=== PATIENT | male | born 1970 | race Caucasian/White ===

== ENCOUNTER 2017-01-09 16:59 | Emergency (ER) | payer OTHER ==
[~2017-01-09] VITALS: Ht 182.9 cm; Wt 74.5 kg
[2017-01-09 17:03] VITALS: BP 135/92; PULSE 102; RESP 18
[2017-01-09] MEDS ORDERED: Promethazine Inj 25 MG in 0.9% Sodium Chloride 50 ML IV ONE (17:10)
[2017-01-09] MEDS ORDERED: 0.9% Sodium Chloride 1,000 ML IV ONE (17:10)
[2017-01-09] MEDS ORDERED: Ondansetron 2 mg/mL 2 mL Inj IVPUSH PRN (17:10)
[2017-01-09] MEDS: HYDROmorphone 1 mg/mL Inj IVPUSH PRN ×2 (17:32→18:09)
--- NOTE | 2017-01-09 17:49 | ED.REPORT ---
HPI-Abd Pain M 40 and Over Date of Service Jan 09, 2017 ED Provider: Sony Buitrago MD The patient is a 46 year old male s/p nerve stimulator placement for occipital neuralgia who presents to the ED with LLQ abdominal pain onset two weeks ago, worsening yesterday. The patient also reports increased bowel movements. He denies fever, vomiting, or other symptoms. The patient had an abdominal CT scan today which suggested sigmoid colon diverticulitis. He took antibiotics this morning but his pain has since worsened. Nursing Notes Stated Complaint: STOMACH PAIN Chief Complaint: Male Abdominal Pain Nursing Notes Reviewed: Yes Allergies: Coded Allergies: No Known Allergies (Unverified , 11/10/15) Scheduled Metronidazole (Metronidazole) 500 Mg Tablet 500 MG PO TID Scheduled PRN Ondansetron ODT (Zofran ODT) 4 Mg Tablet 4 MG PO Q4H PRN PRN For Nausea oxyCODONE-Acetaminophen 5-325 mg (oxyCODONE-Acetaminophen 5-325 mg) 1 Each Tablet 1-2 TAB PO Q6H PRN PRN For Pain General Time Seen by MD: 17:01 Chief Complaint Abdominal pain Hx Obtained From: Patient Arrived By: Walk-in Sudden in Onset?: No Onset Occurred: More than a week ago... (2 weeks, worsening yesterday) Symptom Duration: Since onset Location: : LLQ Quality: Painful Severity: Current: Moderate Severity: Maximum: Moderate Pertinent Negative: Relieved by nothing Recent Healthcare: Recent doctor visit Past Medical History Past Medical History Hx of migraines w/ nerve stimulator for occipital neuralgia Past Surgical History right shoulder surgery Smoking History Smoker Current Status UNK Social History Alcohol Use: Denies alcohol use Drug Use: Denies drug use Other Social History: , Local resident Ambulatory Status Independent Review of Systems Review of Systems Note: + Increased bowel movements Constitutional: Denies: Fever Respiratory: Denies: Non-productive cough, Shortness of breath GI: Reports: Abdominal pain (LLQ), Denies: Diarrhea, Vomiting Complete sys rev & neg: except as marked. Physical Exam Initial Vital Signs Vital Signs (First) Date Time Temp Pulse Resp B/P Pulse Ox O2 Delivery O2 Flow Rate FiO2 01/09/17 17:03 36.8 102 18 135/92 Room Air 01/09/17 18:59 99 Initial VS: Reviewed Head / Eyes: Atraumatic, Normocephalic ENT: Conjunctiva normal, No scleral icterus Neck: Supple, Full range of motion Skin: Warm, Dry, No cyanosis Neurologic: Alert, Oriented, Nonfocal Psychiatric: Mood/affect normal, Behavior normal, Normal thought content General/Constitutional: Awake, Alert, No acute distress Respiratory / Chest: Breath sounds NL, Breath sounds = bilat, No respiratory distress Cardiovascular: Heart rate NL, Regular rhythm, Heart sounds NL Abdomen: Soft Tenderness/Guarding/Rebound: Positive: Tender LLQ... LLQ guarding Interpretation & Diagnostics CT ABDOMEN AND PELVIS W/ IV AND ORAL CONTRAST from clinic on 01/09/17: IMPRESSION: Sigmoid colon diverticulitis. No peridiverticular abscess, free fluid or free air. Dictated by: Marsha Samayoa MD, PhD on 01/09/2017 at 11:18 Re-Eval/Medical Decision Med Decision/Clinical Course I think that his symptoms are within the realm of expected given the CT scan findings. I think that outpatient follow-up is still appropriate but if he is getting much worse I do recommend that he returns and explained this in detail to him. Source of Hx: Old records Time of Eval: 18:11 Patient Status: Condition improved Re-Evaluation/Progress Note: Discussed with patient diagnosis and plan for discharge. Follow-up and return to the ER instructions given. Patient agrees with plan for care and all questions were addressed. Counseled Regarding: Diagnosis, Need for follow-up, When/why to return to ED Discharge & Departure Primary Impression: Diverticulitis of sigmoid colon Disposition: Home Vital Signs - All Vital Signs Date Time Temp Pulse Resp B/P Pulse Ox O2 Delivery O2 Flow Rate FiO2 01/09/17 18:59 36.4 16 112/70 99 Room Air 01/09/17 17:03 36.8 102 18 135/92 Room Air )( All Prior VS Reviewed: Yes Condition: Improved Patient Instructions: Diverticulitis (ED) Additional Instructions: Thank you for entrusting us with your care. Take Cipro twice daily. Take metronidazole (500 mg PO every 8 hours). Extra prescription sent to [facility]. Call your primary care provider on Saturday for a follow-up appointment. Return to the ER with any new or worsening symptoms including high fever, vomiting, or increased pain. Referrals: Juan M Babb MD (PCP) Scribe Attestation Portions of this note were transcribed by Janna Addison. I, Dr. Buitrago, personally performed the history, physical exam, and medical decision-making; I reviewed and confirmed the accuracy of the information in the transcribed note. Signed by: Juan José Moore, 01/09/2017, 19:30 copies to: Juan M Babb MD, Kirk H MD Jan 09, 2017 17:49 JANNA ADDISON Jan 09, 2017 18:11
[2017-01-09] MEDS ORDERED: OXYC1TAB24 PO (18:48)
[2017-01-09] MEDS ORDERED: METR500T19 PO (18:48)
[2017-01-09] MEDS ORDERED: ONDA4TAB9 PO (18:48)
[2017-01-09 18:59] VITALS: BP 112/70; RESP 16; O2SAT 99
== END 2017-01-09 19:00 | disposition home or self-care (01) ==
LOC: SED 16:59
DX: K57.32 Diverticulitis of large intestine without perforation or abscess without bleeding (principal); G43.909 Migraine, unspecified, not intractable, without status migrainosus
CPT/HCPCS: 81002; 96361; 96374; 96375; 96376; 99284; G0463; J1170; J1885; J2405; J2550; J7030

== ENCOUNTER 2017-01-13 14:51 | Observation (INO) | payer OTHER ==
[~2017-01-13] VITALS: Ht 182.9 cm; Wt 71.0 kg
[~2017-01-13 14:51] MED LIST: METR500T19 PO; ONDA4TAB9 PO; OXYC1TAB24 PO
[2017-01-13 14:54] VITALS: BP 138/92; PULSE 84; RESP 16; O2SAT 100
--- NOTE | 2017-01-13 14:59 | ED.REPORT ---
HPI-General Illness Date of Service Jan 13, 2017 ED Provider: Emerson Molina MD A 46 year old male with a history of migraines and diverticulitis is referred to the ED from Urgent Care due to abdominal pain. The pt was seen on 01/09/2017 and discharged with a diagnosis diverticulitis and an antibiotic prescription at that time. Since that time, he has experienced two near syncopal episodes with severe lightheadedness. The pt also reports increasing abdominal pain localized in his mid and left lower abdomen, ranging from a level of 7/10 to 10/ 10. The pain is especially intense in the mid lower abdomen while urinating. This is accompanied by nausea, diarrhea and black stools, though he denies fever , chills, shortness of breath, weakness or vision changes. The pt has been taking his antibiotics normally but has not noticed any improvement. Nursing Notes Stated Complaint: DIVERTICULITIS Chief Complaint: Male Abdominal Pain Nursing Notes Reviewed: Yes Allergies: Coded Allergies: No Known Allergies (Unverified , 11/10/15) Scheduled Metronidazole (Metronidazole) 500 Mg Tablet 500 MG PO TID Scheduled PRN Ondansetron ODT (Zofran ODT) 4 Mg Tablet 4 MG PO Q4H PRN PRN For Nausea oxyCODONE-Acetaminophen 5-325 mg (oxyCODONE-Acetaminophen 5-325 mg) 1 Each Tablet 1-2 TAB PO Q6H PRN PRN For Pain General Time Seen by MD: 14:59 Chief Complaint Abdominal pain Hx Obtained From: Patient, Spouse Arrived By: Walk-in Sudden in Onset?: No Onset Occurred: 4 days ago Location: : Abdomen Quality: Painful Radiation: : Does not radiate Severity: Current: Pain level 7 out of 10 Severity: Maximum: Pain level 10 out of 10 Recent Healthcare: No recent hospitalization, Recent doctor visit Similar Sx Previous: No Past Medical History Past Medical History Hx of migraines w/ nerve stimulator for occipital neuralgia diverticulitis Past Surgical History right shoulder surgery Smoking History Smoker Current Status UNK Social History Alcohol Use: Denies alcohol use Drug Use: Denies drug use Other Social History: , Local resident Ambulatory Status Independent Review of Systems black stool Full Review of Systems Constitutional: Denies: Chills, Fever Respiratory: Denies: Non-productive cough, Shortness of breath Cardiovascular: Denies: Chest pain GI: Reports: Abdominal pain, Diarrhea, Nausea, Denies: Vomiting Skin: Denies Rash Neurologic: Reports: Lightheaded, Denies: Vision change, Weakness Complete sys rev & neg: except as marked. Physical Exam Constitutional: Well-developed, well-nourished. Not diaphoretic. Head: Normocephalic and atraumatic. Mouth/Throat: Oropharynx is clear and moist. No oropharyngeal exudate. Eyes: EOM are normal. Pupils are equal, round, and reactive to light. Neck: Supple, no tracheal deviation. Cardiovascular: Normal rate, regular rhythm. Equal and intact distal pulses throughout. Pulmonary/Chest: Effort normal and breath sounds normal. No respiratory distress. Abdominal: Soft. No distension. Marked LLQ and suprapubic tenderness to palpation. There is no rebound or guarding. Bowel sounds present. Rectum: No gross blood. Good rectal tone without mass. Guaiac negative. Musculoskeletal: Range of motion grossly intact, moving all extremities. No edema or tenderness appreciated. Neurological: AOx3. Grossly nonfocal exam. Strength and sensation intact and equal to bilateral upper and lower extremities. Skin: Warm and dry, no rashes or pallor appreciated. Psychiatric: Appropriate mood and affect. Behavior appears normal. Vital Signs Vital Signs Date Time Temp Pulse Resp B/P Pulse Ox O2 Delivery O2 Flow Rate FiO2 01/13/17 18:25 88 14 133/96 99 Room Air 01/13/17 14:54 36.4 84 16 138/92 100 Room Air Initial VS: Reviewed Interpretation & Diagnostics Interpretation & Diagnostics: Abdomen CT: IMPRESSION: Probable low grade acute sigmoid diverticulitis. No abscess or evidence of perforation. Overall, the appearance is improved since 01/09/17. Dictated by: Jose Miguel Spicer M.D. on 01/13/2017 at 17:54 Approved by: Jose Miguel Spicer M.D. on 01/13/2017 at 17:58 Lab Results Interpretation Result Diagram: 01/13/17 1541 01/13/17 1541 Test 01/13/17 15:41 01/13/17 16:25 White Blood Count 6.3th/mm3 (3.8-10.1) Red Blood Count 5.00mil/mm3 (4.40-5.80) Hemoglobin 14.8g/dL (13.8-17.2) Hematocrit 45.3% (41.0-50.0) Mean Corpuscular Volume 90.6fL (81-100) Mean Corpuscular Hemoglobin 29.6pg (27.0-35.0) Mean Corpuscular Hemoglobin Concent 32.7% (32.0-37.0) Red Cell Distribution Width 13.0% (12.3-15.4) Platelet Count 288bil/L (150-400) Neutrophils (%) (Auto) 66.9% (40-74) Lymphocytes (%) (Auto) 25.6% (14-46) Monocytes (%) (Auto) 6.4% (4-12) Eosinophils (%) (Auto) 0.6% (0-5) Basophils (%) (Auto) 0.3% (0-3) Sodium Level 138mEq/L (134-144) Potassium Level 4.3mEq/L (3.5-5.2) Chloride Level 99mEq/L (97-108) Carbon Dioxide Level 24mmol/L (18-29) Blood Urea Nitrogen 7mg/dL (6-24) Creatinine 1.04mg/dL (0.76-1.27) Estimat Glomerular Filtration Rate 82mL/min (>59) Glucose Level 90mg/dL (60-99) Lactic Acid Level 1.2mmol/L (0.4-2.0) Calcium Level 10.0mg/dL (8.5-10.1) Magnesium Level 2.1mg/dL (1.6-2.6) Total Bilirubin 0.4mg/dL (0.0-1.2) Aspartate Amino Transf (AST/SGOT) 28U/L (0-50) Alanine Aminotransferase (ALT/SGPT) 20U/L (0-44) Alkaline Phosphatase 70U/L (25-150) Total Protein 8.3g/dL (6.4-8.4) Albumin 4.7g/dL (3.4-5.0) Lipase 28U/L (13-60) Urine Color Yellow (YELLOW) Urine Appearance Clear (CLEAR,HAZY) Urine pH 6.0 (5.0-8.0) Urine Specific Boutte 1.010 (1.003-1.035) Urine Protein Negativemg/dL (NEG,TRACE) Urine Glucose (UA) Negativemg/dL (NEGATIVE) Urine Ketones 15mg/dL (NEGATIVE) Urine Occult Blood Negative (NEGATIVE) Urine Nitrite Negative (NEGATIVE) Urine Bilirubin Negative (NEGATIVE) Urine Urobilinogen Normalmg/dL (NORMAL) Urine Leukocyte Esterase Trace (NEGATIVE) Urine RBC 0-2/hpf (0-2) Urine WBC 0-5/hpf (0-5) Urine Epithelial Cells None/hpf (NONE-MOD) Urine Crystals None seen (NONE SEEN) Urine Bacteria Few/hpf (NONE-FEW) Urine Hyaline Casts None/lpf (NONE) Urine Granular Casts None seen (NONE SEEN) Urine Waxy Casts None seen (NONE SEEN) Urine Red Blood Cell Casts None seen (NONE SEEN) Urine White Blood Cell Casts None seen (NONE SEEN) Urine Mucus None seen (None Seen) Urine Trichomonas None seen (NONE SEEN) Urine Yeast None (NONE SEEN) Urinalysis Comment None Urine Culture Reflexed Indicated Re-Eval/Medical Decision Med Decision/Clinical Course In summary, 46-year-old male presenting to the ED for evaluation of worsening abdominal pain, 2 near syncopal episodes associated with pain earlier today, as well as some darker stools. Hemoccult negative. Hemodynamic stable in the emergency department. He is on day 7 of outpatient treatment for diverticulitis , however given his worsening abdominal pain, tenderness on exam, and report of dark stools, decision made to repeat CT scan. He does show some signs of improvement, however his diverticulitis persists. Given this, as well as patient's significant pain, plan admission for IV antibiotics, further evaluation and management. Patient agreed with the plan as stated, no further questions. Source of Hx: Old records Time of Eval: 18:36 Patient Status: Condition improved Re-Evaluation/Progress Note: Pt rechecked, who is resting. The diagnosis and options for both discharge and admission are discussed. The pt would prefer admission. He understands and agrees with the plan. All questions are addressed at this time. Consultation : Referral / Consult Name: Jada Vasquez DO Consulted With: Hospitalist Call Returned at: 18:52 Saloonkeeper: Agrees with eval, Agrees with plan, Accepts admit Note: Spoke with Dr. Kaur, hospitalist, regarding pt's case. Dr. Kaur agrees with the evaluation and agrees to admit the pt. Counseled Regarding: Diagnosis, Lab results, Need for admission Discharge & Departure Primary Impression: Diverticulitis Diverticulitis site: unspecified part of intestinal tract Diverticulitis bleeding: with bleeding Diverticulitis complication: without perforation or abscess Qualified Code: K57.93 - Diverticulitis of intestine, part unspecified , without perforation or abscess with bleeding Disposition: ADMITTED TO HOSPITAL Discharge Condition All VS Reviewed: Yes Condition: Stable Referrals: Karen Smith (PCP) Juan José Attestation Portions of this note were transcribed by Amanda Pierce. I, Dr. Molina personally performed the history, physical exam and medical decision-making; I reviewed and confirmed the accuracy of the information in the transcribed note. Signed by: Juan José Pang, 01/13/2017 and 1856. copies to: Karen Smith William B MD Jan 13, 2017 14:59 AMANDA PIERCE Jan 13, 2017 16:02
[2017-01-13 15:59] LABS: BASOPHILS % (AUTO) 0.3 % (0-3); EOSINOPHILS % (AUTO) 0.6 % (0-5); MONOCYTES % (AUTO) 6.4 % (4-12); Mean Corpuscular Hemoglobin 29.6 pg (27.0-35.0); Mean Corpuscular Volume 90.6 fL (81-100); NEUTROPHILS % (AUTO) 66.9 % (40-74); Platelet Count 288 bil/L (150-400)
[2017-01-13] MEDS ORDERED: 0.9% Sodium Chloride 1,000 ML IV ONE (16:04)
[2017-01-13] MEDS ORDERED: Iohexol 300 mg/mL 30 mL Inj PO ONE (16:10)
[2017-01-13 16:22] LABS: Magnesium 2.1 mg/dL (1.6-2.6)
[2017-01-13 16:48] LABS: APPEARANCE,URINE CLEAR (CLEAR,HAZY); COLOR,URINE YELLOW (YELLOW); OCCULT BLOOD,URINE NEGATIVE (NEGATIVE)
[2017-01-13 16:49] LABS: UROBILINOGEN,URINE NORMAL (NORMAL)
[2017-01-13] MEDS: Ondansetron 2 mg/mL 2 mL Inj IVPUSH PRN ×2 (17:16→18:00)
[2017-01-13] MEDS: HYDROmorphone 0.5 mg/0.5 mL iSecure Syringe IVPUSH PRN ×4 (17:16→20:16)
--- NOTE | 2017-01-13 17:59 | DRSVH ---
PROCEDURE: CT ABDOMEN AND PELVIS WITH CONTRAST ([id number]) INDICATIONS: dx diverticulitis, now worse pain-eval for change TECHNIQUE: After the administration of intravenous contrast, 5 mm thick sections acquired from the diaphragm to the symphysis. 5 mm coronal and sagittal reformats were acquired. For radiation dose reduction, the following was used: automated exposure control, adjustment of mA and/or kV according to patient nai vasques. COMPARISON: [facility], CT, CT ABD PELVIS W CON, 01/09/2017, 10:57. FINDINGS: Image quality: Excellent. ABDOMEN: Lung bases: Lung bases are clear. Heart size is normal. Solid organs: Liver and spleen are normal in size and enhancement. Gallbladder unremarkable. Bilia ry system is non dilated. Pancreas enhances normally. No adrenal nodules. Kidneys demonstrate norm al size and enhancement, without hydronephrosis. Peritoneum and bowel: Bowel loops demonstrate normal wall thickness and caliber. No free fluid or a ir. Colonic diverticulosis, and there is and inflamed appearing diverticulum seen in the region of t he sigmoid colon image 73 series 2 with surrounding inflammatory stranding in keeping with acute dive rticulitis. No abscess or free air The rectum is decompressed otherwise unremarkable. Normal appendix. Nodes and vessels: No retroperitoneal or mesenteric adenopathy by size criteria. Aorta and inferior vena cava are normal in size. Miscellaneous: No ventral hernias. PELVIS: Genitourinary: Bladder wall thickness is normal. Miscellaneous: No inguinal hernias or adenopathy. Bones: No suspicious bony lesions. No vertebral body compression fractures. IMPRESSION: Probable low grade acute sigmoid diverticulitis. No abscess or evidence of perforation. Overall, the appearance is improved since 01/09/17. Dictated by: Jose Miguel Spicer M.D. on 01/13/2017 at 17:54 Approved by: Jose Miguel Spicer M.D. on 01/13/2017 at 17:58
[2017-01-13 18:25] VITALS: BP 133/96; PULSE 88; RESP 14; O2SAT 99
[2017-01-13] MEDS ORDERED: Piperacillin-Tazo 3.375 Gm Inj 3.375 GM in Dextrose 5% Minibag Plus 50 ML IV ONE (18:55)
[2017-01-13] MEDS ORDERED: Alum-Mag Hydrox-Simeth 30 mL Suspension PO PRN (20:05)
[2017-01-13] MEDS ORDERED: Ondansetron 2 mg/mL 2 mL Inj IVPUSH PRN (20:05)
[2017-01-13] MEDS ORDERED: Polyethylene Glycol (PEG) 17 Gm Powder PO PRN (20:05)
[2017-01-13 20:13] VITALS: BP 136/90; PULSE 81; RESP 14; O2SAT 99
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
[2017-01-13] MEDS ORDERED: Dextrose 10% 250 ML IV PRN (20:40)
[2017-01-13 21:07] VITALS: BP 131/89; PULSE 79; RESP 16; O2SAT 91
[2017-01-13] MEDS: HYDROcodone-APAP 5-325 mg Tablet PO PRN (21:13)
[2017-01-14] MEDS ORDERED: Heparin 5,000 Unit/mL Inj SUBQ SCH (00:30)
[2017-01-14 00:35] VITALS: BP 110/65; PULSE 70; RESP 18; O2SAT 96
[2017-01-14 00:40] VITALS: BP 114/78; PULSE 67
[2017-01-14 00:45] VITALS: BP 115/81; PULSE 77
[2017-01-14] MEDS: HYDROcodone-APAP 5-325 mg Tablet PO PRN ×6 (00:59→21:42)
[2017-01-14] MEDS ORDERED: UBID100C27 PO (01:09)
[2017-01-14] MEDS ORDERED: MULT-544 PO (01:09)
[2017-01-14] MEDS ORDERED: CYAN500L4 PO (01:09)
[2017-01-14 03:59] VITALS: BP 119/72; PULSE 65; RESP 16; O2SAT 98
[2017-01-14] MEDS ORDERED: Piperacillin-Tazo 3.375 Gm Inj 3.375 GM in Dextrose 5% Minibag Plus 50 ML IV SCH (04:00)
[2017-01-14] MEDS ORDERED: 0.9% Sodium Chloride 250 ML ONE (04:18)
--- NOTE | 2017-01-14 05:20 | NUR ---
Admit to 1012 Pt arrived from ED about 2029, able to ambulate safely independently in room. Abdominal pain adequately controlled with 2 Vicodin Q4 hours. IV antibiotics. Need to guaiac stool, heparin on hold until stool test can be done, SCDs in place. Pt oriented to hospital routines, plan of care; hourly rounding ongoing.
[2017-01-14 05:47] LABS: BASOPHILS % (AUTO) 0.5 % (0-3); EOSINOPHILS % (AUTO) 1.8 % (0-5); MONOCYTES % (AUTO) 10.5 % (4-12); Mean Corpuscular Hemoglobin 29.5 pg (27.0-35.0); Mean Corpuscular Volume 91.1 fL (81-100); NEUTROPHILS % (AUTO) 45.4 % (40-74); Platelet Count 259 bil/L (150-400)
[2017-01-14] MEDS ORDERED: Magnesium Hydroxide 10 mL Oral Concentration PO ONE (12:15)
[2017-01-14] MEDS ORDERED: Levofloxacin 750 mg/150 mL D5W IV SCH (12:30)
[2017-01-14 15:50] VITALS: BP 115/78; PULSE 67; RESP 17; O2SAT 100
--- NOTE | 2017-01-14 16:52 | PCM.PNMED ---
Subjective Date of Service Jan 14, 2017 Subjective Still having abdominal pain, really moving bowels, hungry. No chest pain, no dyspnea, slight nausea but no vomiting. Exam Vital Signs Vital Sign - Last Date Time Temp Pulse Resp B/P Pulse Ox O2 Delivery O2 Flow Rate FiO2 01/14/17 15:50 36.4 67 17 115/78 100 Room Air Intake and Output 01/13/17 01/13/17 01/14/17 Cumulative From/Thru 15:00 23:00 07:00 01/13/17 14:54 - 01/14/17 05:51 Intake Total 1000 ml 1100 ml 2100 ml Output Total 1000 ml 1000 ml Balance 1000 ml 100 ml 1100 ml Intake Oral 1100 ml 1100 ml IV Total 1000 ml 1000 ml Output Urine Total 1000 ml 1000 ml Exam Gen.- A+ O 3 no apparent distress. Thin male lying in bed Patient is pretty stoic think he is having more pain than he lets on. Eyes- open conjunctiva clear, pupils equal nonicteric Mouth-no deformity of lips ENT- ears normal, nose normal, hearing intact Neck- supple/trach midline CVS- RRR no murmur or gallop Lungs- CTA GI- NABS/NT rigid, think is muscular or preventing me from palpating due to pain. Musc- moving 4 no obvious deformity Neuro- cranial nerves II through XII intact to gross examination, nonfocal Skin- warm and dry, no rashes/lesions/wounds noted Psych- pleasant and appropriate, Lab and Diagnostics Result Diagram: 01/14/17 0522 01/14/17 0522 X-Rays, CTs and MRIs Abdominal CT performed 01/13/2017 IMPRESSION: Probable low grade acute sigmoid diverticulitis. No abscess or evidence of perforation. Overall, the appearance is improved since 01/09/17. Dictated by: Jose Miguel Spicer M.D. on 01/13/2017 at 17:54 Assessment & Plan 46-yo male admit 01/13 after failing outpatient therapy for diverticulitis. 01/14 patient is made inpatient status he is on IV antibiotics and failed attempted outpatient treatment. Changing back to Cipro/Flagyl and treating symptoms if he is tolerating food and his pain is adequately controlled blood pressure is fine without lab abnormalities perhaps we will discharge in 01/15. # diverticulitis- symptoms improving, labs look good, stop Zosyn, start Cipro/ Flagyl IV convert to by mouth 01/15 Continued evidence of diverticulitis on CT, worsening abdominal pain, complaint of melena. Blood culture 2 Vicodin 5-325 one to 2 pills by mouth every 4 hours as needed for pain #Near-syncope, resolved #UTI- none dysuria likely secondary to diverticulitis and possible bladder irritation. #Hx TBI and perhaps some chronic pain issues he had an abdominal stimulator that is run out of batteries. No issue right now. Patient should be admitted as inpatient because were giving IV antibiotics he failed outpatient treatment. GI Prophylaxis: Not indicated VTE Prophylaxis: Sub-Q Heparin (Unfractionated) VTE Mechanical Devices: Intermittant Pneumatic CD Resuscitation Status: CPR: Attempt Resuscitation Momo Burrell MD Jan 14, 2017 16:52
[2017-01-14] MEDS: metroNIDAZOLE Inj 500 MG in IV Premix 1 EACH IV SCH (17:02)
--- NOTE | 2017-01-14 18:35 | NUR ---
Pain Patient continues to have some abdominal pain this shift, but states that it is improved from prior to arriving to ED. Care is ongoing.
[2017-01-14 20:02] VITALS: BP 114/75; PULSE 59; RESP 16; O2SAT 99
[2017-01-14] MEDS ORDERED: Ciprofloxacin Inj 400 MG in IV Premix 1 EACH IV SCH (20:30)
[2017-01-14] MEDS ORDERED: Magnesium Hydroxide 10 mL Oral Concentration PO SCH (21:00)
[2017-01-15] MEDS: metroNIDAZOLE Inj 500 MG in IV Premix 1 EACH IV SCH (01:36)
[2017-01-15] MEDS: HYDROcodone-APAP 5-325 mg Tablet PO PRN ×2 (01:42→05:49)
--- NOTE | 2017-01-15 04:58 | NUR ---
Pain Tolerated diet increase without nausea, but some increase in pain during night, PO pain meds providing adequate relief. Ambulating safely in room. Small BM in evening, devaniac sent. Pt anticipating D/C . Hourly rounding ongoing.
[2017-01-15 05:57] VITALS: BP 109/70; PULSE 59; RESP 16; O2SAT 96
[2017-01-15] MEDS ORDERED: Amoxicillin-Clav 875-125 mg Tablet PO SCH (08:40)
[2017-01-15 08:58] LABS: BASOPHILS % (AUTO) 0.5 % (0-3); EOSINOPHILS % (AUTO) 0.9 % (0-5); MONOCYTES % (AUTO) 7.9 % (4-12); Mean Corpuscular Hemoglobin 29.8 pg (27.0-35.0); Mean Corpuscular Volume 90.8 fL (81-100); NEUTROPHILS % (AUTO) 64.3 % (40-74); Platelet Count 262 bil/L (150-400)
--- NOTE | 2017-01-15 09:24 | NUR ---
Social Work- Brief Note/ Readiness for Discharge Data: EMR reviewed. Pt is a 46 year old male admitted 01/13/17 for diverticulitis per H&P. Pt may discharge tonight or tomorrow if he is able to transition to PO abx. Pt's insurance is [employer]. Pt's PCP is Karen Smith PA-C. SW met with pt and at bedside regarding discharge plan, SW role explained. Pt alert and oriented x3. Pt resides in [place] with his Nannette Addison, designated showroom salesperson [phone]. Pt has been independent in room during this admission. Pt will be transitioned to PO abx prior to discharge- this has been difficult as pt has had some reactions to the abx thus far. Pt to discharge home with to transport via POV. No discharge needs identified at this time. SW will continue to follow if needs arise. Assessment: Pt who is independent at baseline and who will need PO abx. Plan: Pt will be transitioned to PO abx prior to discharge- this has been difficult as pt has had some reactions to the abx thus far. Pt to discharge home with to transport via POV. No discharge needs identified at this time. SW will continue to follow if needs arise. KEITH Lizama
[2017-01-15 15:30] LABS: APPEARANCE,URINE HAZY (CLEAR,HAZY); COLOR,URINE STRAW (YELLOW); PH,URINE 7.5 (5.0-8.0)
[2017-01-15 15:31] LABS: OCCULT BLOOD,URINE NEGATIVE (NEGATIVE); UROBILINOGEN,URINE NORMAL (NORMAL)
[2017-01-15 15:38] VITALS: BP 110/75; PULSE 18; RESP 18; O2SAT 98
--- NOTE | 2017-01-15 16:31 | PCM.DIMED ---
Discharge Instructions Date of Service Jan 15, 2017 Dates of Hospitalization Jan 13, 2017 at 19:59 Discharge Diagnosis Discharge Diagnosis Diverticulitis, inflammation of the colon from an infection Diet Discharge Diet: Other (liquids may advance to low residual slowly her symptoms breanna.) Patient Instructions Patient Instructions Finish the antibiotics, go see her primary care provider reintroduce regular food slowly tolerates it. The important thing is that he got enough liquids staying hydrated. Follow-up Provider: Karen Smith PAC Follow-up with PCP in: 1 week Momo Burrell MD Jan 15, 2017 16:31
[2017-01-15] MEDS ORDERED: MAGN800O PO (16:35)
[2017-01-15] MEDS ORDERED: Lactobacillus Acidophilus PO (16:35)
[2017-01-15] MEDS ORDERED: OXYC1TAB24 PO (16:35)
[2017-01-15] MEDS ORDERED: AGM875T PO (16:35)
[2017-01-15] MEDS ORDERED: ONDA4TAB9 PO (16:35)
[2017-01-15] MEDS ORDERED: Acetaminophen PO (16:35)
--- NOTE | 2017-01-15 16:42 | PCM.DC.MED ---
Discharge Summary Date of Service Jan 15, 2017 Dates of Hospitalization Date of Hospital Admission Jan 13, 2017 at 19:59 Date of Discharge: Jan 15, 2017 Providers: Admitting Physician: Aubree Kaur DO Primary Care Physician: Karen Smith Attending Physician: Aubree Kaur DO Diagnosis at Time of Discharge Diagnosis at Time of Discharge Diverticulitis, inflammation of the colon from an infection Consultations None Procedures XRay, CTs & MRIs Abdominal CT performed 01/13/2017 IMPRESSION: Probable low grade acute sigmoid diverticulitis. No abscess or evidence of perforation. Overall, the appearance is improved since 01/09/17. Dictated by: Jose Miguel Spicer M.D. on 01/13/2017 at 17:54 Brief History Jimmy Addison is a 46-year-old gentleman who is being treated for diverticulitis in an outpatient setting. Symptoms began roughly 3-1/2 weeks ago, right lower quadrant pain, 5 out of 10 worsening, with radiation into the groin, pain waxed and waned, he was seen in urgent care on 01/09/[address] where he received a CT scan which showed sigmoid colon diverticulitis. He was started on oral metronidazole 500 mg twice a day, ciprofloxacin 500 mg twice a day. He had a white count of 10.9, absolute neutrophil count of 8.38, Later the same day he had worsening symptoms and presented to the [facility] emergency department where he was instructed to increase his ciprofloxacin to every 8 hours. Today he stated that there was no improvement in his symptoms and has had episodes of near syncope described as feeling like he is given a pass out, blurry vision, needing to vomit, but ultimately does not describe a loss of consciousness. He states that these events are not related to sitting, standing , laying, but does convey he has been eating very little sticking to a clear liquid diet and was only had some solids including a little bit of rice. He endorses mild headache, abdominal pain, nausea diarrhea, very black bowel movement, improvement of diarrhea, cold sweats, little lightheadedness and dizziness, no chest pain, no shortness of breath, no vomiting, no numbness weakness tingling in his arms hands feet or legs, no hematochezia, dysuria described as suprapubic pain when attempting to micturate. Prior to these episodes he has never been told he had diverticulitis, or diverticulosis. The only abdominal surgery was for placement of the battery pack to cervical nerve stimulator more than a decade ago. In the emergency department he had a temperature of 36.4, heart rate 84, respiratory rate 16, blood pressure 138/92, pulse ox 100% on room air. CBC, CMP, lactic acid were all without abnormalities. Urine 15 ketones, trace LE Repeat CT scan showed low-grade sigmoid diverticulitis without abscess or perforation, approved appearance since previous. Hospital Course 46-yo male admit 01/13 after failing outpatient therapy for diverticulitis. 01/14 patient is made inpatient status he is on IV antibiotics and failed attempted outpatient treatment. Changing back to Cipro/Flagyl and treating symptoms if he is tolerating food and his pain is adequately controlled blood pressure is fine without lab abnormalities perhaps we will discharge in 01/15. 01/15 she was having worsening pain and think we advanced his diet a little too fast. I switched him over to Augmentin he seems to be doing well. He is continent at least 6 if not 7 days of treatment I am giving him another 5. I have given him Percocets and Zofran and told him to maintain his hydration and slowly advance his diet. I am optimistic that this will take and I am discharging him. # diverticulitis- symptoms improving, labs look good, stop Zosyn, start Cipro/ Flagyl IV, patient got nauseous so I went ahead and gave him Augmentin 01/15 he tolerated without all right. Continued evidence of diverticulitis on CT, worsening abdominal pain, complaint of melena. #Near-syncope, resolved #UTI- no UTI. Dysuria likely secondary to diverticulitis and possible bladder irritation. #Hx TBI and perhaps some chronic pain issues he had an abdominal stimulator that is run out of batteries. No issue right now. Change the patient back to observation status because apparently will get paid nothing by [employer] if I do not, I am not sure what criteria are being used to state this patient is should be observation given he failed a trial of oral antibiotics as an outpatient. I find it hard to believe this could be correct. Exam Vital Signs (Last) Date Time Temp Pulse Resp B/P Pulse Ox O2 Delivery O2 Flow Rate FiO2 01/15/17 15:38 37.1 18 18 110/75 98 01/15/17 05:57 Room Air Exam Gen.- A+ O 3 no apparent distress. Thin male lying in bed Patient is pretty stoic think he is having more pain than he lets on. Eyes- open conjunctiva clear, pupils equal nonicteric Mouth-no deformity of lips ENT- ears normal, nose normal, hearing intact Neck- supple/trach midline CVS- RRR no murmur or gallop Lungs- CTA GI- NABS/NT soft still some suprapubic tenderness Musc- moving 4 no obvious deformity Neuro- cranial nerves II through XII intact to gross examination, nonfocal Skin- warm and dry, no rashes/lesions/wounds noted Psych- pleasant and appropriate, Test 01/13/17 15:41 01/14/17 05:22 01/15/17 08:51 01/15/17 15:10 Lactic Acid Level 1.2mmol/L (0.4-2.0) Magnesium Level 2.1mg/dL (1.6-2.6) Lipase 28U/L (13-60) Procalcitonin 0.04ng/mL (0.00-0.08) Total Bilirubin 0.5mg/dL (0.0-1.2) Aspartate Amino Transf (AST/SGOT) 24U/L (0-50) Alanine Aminotransferase (ALT/SGPT) 16U/L (0-44) Alkaline Phosphatase 56U/L (25-150) Total Protein 6.4g/dL (6.4-8.4) Albumin 4.1g/dL (3.4-5.0) White Blood Count 5.6th/mm3 (3.8-10.1) Red Blood Count 4.59mil/mm3 (4.40-5.80) Hemoglobin 13.7g/dL (13.8-17.2) Hematocrit 41.7% (41.0-50.0) Mean Corpuscular Volume 90.8fL (81-100) Mean Corpuscular Hemoglobin 29.8pg (27.0-35.0) Mean Corpuscular Hemoglobin Concent 32.9% (32.0-37.0) Red Cell Distribution Width 12.8% (12.3-15.4) Platelet Count 262bil/L (150-400) Neutrophils (%) (Auto) 64.3% (40-74) Lymphocytes (%) (Auto) 26.4% (14-46) Monocytes (%) (Auto) 7.9% (4-12) Eosinophils (%) (Auto) 0.9% (0-5) Basophils (%) (Auto) 0.5% (0-3) Sodium Level 137mEq/L (134-144) Potassium Level 4.4mEq/L (3.5-5.2) Chloride Level 100mEq/L (97-108) Carbon Dioxide Level 26mmol/L (18-29) Blood Urea Nitrogen 9mg/dL (6-24) Creatinine 1.05mg/dL (0.76-1.27) Estimat Glomerular Filtration Rate 81mL/min (>59) Glucose Level 128mg/dL (60-99) Calcium Level 9.5mg/dL (8.5-10.1) Urine Color Straw (YELLOW) Urine Appearance Hazy (CLEAR,HAZY) Urine pH 7.5 (5.0-8.0) Urine Specific [place] 1.010 (1.003-1.035) Urine Protein Negativemg/dL (NEG,TRACE) Urine Glucose (UA) Negativemg/dL (NEGATIVE) Urine Ketones Negativemg/dL (NEGATIVE) Urine Occult Blood Negative (NEGATIVE) Urine Nitrite Negative (NEGATIVE) Urine Bilirubin Negative (NEGATIVE) Urine Urobilinogen Normalmg/dL (NORMAL) Urine Leukocyte Esterase Trace (NEGATIVE) Urine RBC 0-2/hpf (0-2) Urine WBC 0-5/hpf (0-5) Urine Epithelial Cells Occasional/hpf (NONE-MOD) Urine Crystals None seen (NONE SEEN) Urine Bacteria None/hpf (NONE-FEW) Urine Hyaline Casts None/lpf (NONE) Urine Granular Casts None seen (NONE SEEN) Urine Waxy Casts None seen (NONE SEEN) Urine Red Blood Cell Casts None seen (NONE SEEN) Urine White Blood Cell Casts None seen (NONE SEEN) Urine Mucus None seen (None Seen) Urine Trichomonas None seen (NONE SEEN) Urine Yeast None (NONE SEEN) Urinalysis Comment None Urine Culture Reflexed Indicated Microbiology Results Blood, urine, C. difficile all negative to date. Discharge Medications Discharge Medications ([Lactobacillus Acidophilus]) 1 TABLET TABLET 2 TABLET PO PCHS Prescribed by: ZAIDA BERNARD MD Amoxicillin/Clav K 875-125 mg (Amoxicillin/Clav K 875-125 mg) 875 Mg Tab 1 TAB PO BID Prescribed by: ZAIDA BERNARD MD Cyanocobalamin (Vitamin B-12) (Vitamin B-12) 500 Mcg Lozenge 500 MCG PO DAILY ( Reported) Multivitamin (Men's Multi-Vitamin) 1 Each Tablet 1 EACH PO DAILY (Reported) Ubidecarenone (Co Q10) 100 Mg Capsule 200 MG PO DAILY (Reported) As needed ([Acetaminophen]) 325 MG TABLET 975 MG PO Q6H PRN PRN For Mild Pain or Fever Prescribed by: ZAIDA BERNARD MD Magnesium Hydroxide (Milk of Magnesia) 2,400 Mg/10 Ml Oral.susp 2,400 MG PO TID PRN PRN For Constipation Prescribed by: ZAIDA BERNARD MD Ondansetron ODT (Zofran ODT) 4 Mg Tablet 4 MG PO Q4H PRN PRN For Nausea Prescribed by: ZAIDA BERNARD MD oxyCODONE-Acetaminophen 5-325 mg (oxyCODONE-Acetaminophen 5-325 mg) 1 Each Tablet 1-2 TAB PO Q6H PRN PRN For Pain Prescribed by: ZAIDA BERNARD MD Followup Plan Disposition: The home Follow-up plan Finish antibiotics, follow-up with PCP within the next week just to make sure he has enough pain medication/anti-emetics and he is resolving. He may cancel it if he is doing great. Discharge Diet: Other (liquids may advance to low residual slowly her symptoms breanna.) Patient Instructions Finish the antibiotics, go see her primary care provider reintroduce regular food slowly tolerates it. The important thing is that he got enough liquids staying hydrated. Follow-up Provider: Karen Smith Follow-up with PCP in: 1 week Time spent Greater than 30 minutes Attending Statement Might not be a bad idea to get an outpatient visit with the granite block paver as symptoms seem out of proportion to findings. It might be beneficial for this patient have a colonoscopy before the age of 50. copies to: Karen Smith Andris E MD Jan 15, 2017 16:42
[2017-01-15] MEDS ORDERED: HYDR-4003 PO (17:35)
--- NOTE | 2017-01-15 18:00 | NUR ---
DC Discharging pt to home. Pt and understand all discharge instructions. Prescriptions in hand. All belongings in hand. IV removed. Care discontinues
== END 2017-01-15 18:00 | disposition home or self-care (01) ==
LOC: SED 14:51 → OBSVTOIN 19:59 → INTOOBSV 19:59 → OSC 19:59
PROVIDERS: ADMIT Internal Medicine; ATTEND Internal Medicine
DX: K57.32 Diverticulitis of large intestine without perforation or abscess without bleeding (principal); R55 Syncope and collapse; R30.0 Dysuria; Z87.820 Personal history of traumatic brain injury
CPT/HCPCS: 36415; 74177; 80048; 80053; 81000; 82274; 83605; 83690; 83735; 84145; 85025; 87040; 87086; 87493; 96361; 96365; 96375; 96376; 99285; G0378; G0463; J1170; J1956; J2405; J2543; J3490; J7030; J7050; Q9967

== ENCOUNTER 2017-02-13 09:06 | Emergency (ER) | payer OTHER ==
[~2017-02-13] VITALS: Ht 182.9 cm; Wt 155.0 kg
[~2017-02-13 09:06] MED LIST changes: +AGM875T PO; +Acetaminophen PO; +CYAN500L4 PO; +HYDR-4003 PO; +Lactobacillus Acidophilus PO; +MAGN800O PO; -METR500T19 PO; +MULT-544 PO; -OXYC1TAB24 PO; +UBID100C27 PO
[2017-02-13 09:13] VITALS: BP 145/98; PULSE 76; RESP 14; O2SAT 100
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
[2017-02-13] MEDS ORDERED: Iohexol 300 mg/mL 30 mL Inj PO ONE (09:35)
[2017-02-13 10:31] LABS: BASOPHILS % (AUTO) 0.2 % (0-3); EOSINOPHILS % (AUTO) 0.9 % (0-5); MONOCYTES % (AUTO) 8.9 % (4-12); Mean Corpuscular Hemoglobin 29.9 pg (27.0-35.0); Mean Corpuscular Volume 89.4 fL (81-100); NEUTROPHILS % (AUTO) 56.4 % (40-74); Platelet Count 220 bil/L (150-400)
--- NOTE | 2017-02-13 11:38 | DRSVH ---
PROCEDURE: CT ABDOMEN AND PELVIS WITH CONTRAST ([id number]) INDICATIONS: LLQ pain, h/o diverticulitis one month ago TECHNIQUE: After the administration of oral and intravenous contrast, 5 mm thick sections acquired from the diap hragms to the symphysis. 5 mm thick coronal and sagittal reformats were performed. For radiation do se reduction, the following was used: automated exposure control, adjustment of mA and/or kV accordi ng to patient size. COMPARISON: [facility], CT, CT ABD PELVIS W CON, 01/13/2017, 16:39. [facility], CT, CT ABD PELVIS W CON, 01/09/2017, 10:57. FINDINGS: Image quality: Excellent. ABDOMEN: Lung bases: Lung bases are clear. Heart size is normal. Solid organs: Liver and spleen are normal in size and enhancement. Mild, diffuse fatty infiltration of the liver. Gallbladder is within normal limits. Biliary system is non-dilated. Pancreas enhance s normally. No adrenal nodules. Kidneys are normal in size and enhancement, without hydronephrosis. Peritoneum and bowel: Stomach, small bowel, and colon loops are normal in caliber and wall thickness . Scattered diverticuli noted in the colon. No evidence of diverticulitis in the current study. No fr ee fluid or air. Nodes and vessels: No retroperitoneal or mesenteric adenopathy. Aorta and inferior vena cava are no rmal in caliber. Miscellaneous: No ventral hernias. Neural stimulator with leads projecting into the thoracic spine i s noted in the anterior right abdominal wall subcutaneous soft tissues. PELVIS: Genitourinary: Bladder wall thickness is normal. Miscellaneous: No inguinal hernias or adenopathy. Bones: No suspicious bony lesions. No vertebral body compression fractures. Deformity of the anteri or margin of the left iliac bone is noted possibly related to remote trauma. IMPRESSION: 1. Colonic diverticulosis without evidence of active diverticulitis. 2. No free fluid or free air. 3. No dilated loops of bowel. Dictated by: Marsha Samayoa MD, PhD on 02/13/2017 at 11:28 Approved by: Marsha Samayoa MD, PhD on 02/13/2017 at 11:36
[2017-02-13 12:37] VITALS: BP 117/73; PULSE 73; RESP 16; O2SAT 97
== END 2017-02-13 12:15 | disposition home or self-care (01) ==
LOC: SED 09:06
DX: K57.32 Diverticulitis of large intestine without perforation or abscess without bleeding (principal); K92.2 Gastrointestinal hemorrhage, unspecified; Z88.1 Allergy status to other antibiotic agents
CPT/HCPCS: 36415; 74177; 80053; 85014; 85018; 85025; 85610; 86850; 99284; Q9967

== ENCOUNTER 2017-03-04 07:00 | Day surgery (SDC) | payer OTHER ==
[~2017-03-04] VITALS: Ht 182.9 cm; Wt 72.6 kg
[~2017-03-04 07:00] MED LIST changes: +0.9% Sodium Chloride 1,000 ML IV SCH; -AGM875T PO; -HYDR-4003 PO; -MAGN800O PO; -ONDA4TAB9 PO; +Sodium Chloride LOK Flush 10 mL Syringe IV PRN; -UBID100C27 PO; +fentaNYL-PF 50 mCg/mL 2 mL Inj IVPUSH PRN
[2017-03-04 07:43] VITALS: BP 123/91; PULSE 72; RESP 16; O2SAT 98
[2017-03-04 08:26] VITALS: BP 111/78; PULSE 96; RESP 16; O2SAT 100
[2017-03-04 08:36] VITALS: BP 116/72; PULSE 91; RESP 16; O2SAT 100
[2017-03-04 08:46] VITALS: BP 126/91; PULSE 86; RESP 16; O2SAT 100
--- NOTE | 2017-03-04 09:21 | ENDO ---
[address] [address] ENDOSCOPY PROCEDURE PATIENT: RANDALL VENEGAS : 1970 MR#: [id number] ADMIT: 03/04/2017 JOB ID: [id number] CORRECTED REPORT: DATE: 03/04/2017 PROCEDURE PERFORMED: Esophagogastroduodenoscopy. INDICATION: Melena. ASA classification is one. Mallampati score is two. MEDICATIONS: 1. Versed 7 mg. 2. Fentanyl 175 mcg that was used for the EGD as well as colonoscopy that followed. INSTRUMENT USED: [id number] PROCEDURE DETAILS: After informed consent was obtained, the patient was brought to the GI suite, where she was placed on oxygen via nasal cannula and monitored with continuous pulse oximeter, telemetry, and blood pressure monitoring. A time-out was performed. Then, she was placed in a left lateral decubitus position and medications were administered for sedation. A bite block was placed. The standard esophagogastroduodenoscopy scope was inserted through the bite block and advanced under direct visualization to the second portion of duodenum without difficulty. FINDINGS: 1. Normal appearing duodenal first and second portion. Multiple random biopsies were obtained. 2. Normal-appearing pylorus, antrum, and gastric body. 3. Retroflexed views in the gastric body revealed a normal-appearing cardia fundus. 4. Multiple random biopsies were obtained throughout the antrum and body of the stomach. 5. Normal-appearing GE junction with a regular Z-line at 42 cm. 6. Normal appearing esophagus. IMPRESSION: Normal esophagogastroduodenoscopy exam to second portion of duodenum. No findings to explain patient's melena. RECOMMENDATIONS: Follow CBC and proceed to colonoscopy. Corrected by ALYSE 03/08/17 at 2:01pm DOS.
--- NOTE | 2017-03-04 09:23 | ENDO ---
[address] [address] ENDOSCOPY PROCEDURE PATIENT: RANDALL VENEGAS : 1970 MR#: [id number] ADMIT: 03/04/2017 JOB ID: [id number] CORRECTED REPORT: DATE: 03/04/2017 PROCEDURE PERFORMED: Colonoscopy. INDICATION: Diverticulosis and melena. Please see EGD report for ASA classification, Mallampati score, and medications. INSTRUMENT USED: [id number] PREPARATION QUALITY: Good. PROCEDURE DETAILS: After completion of the EGD exam, the patient was turned and then a digital rectal exam was performed which was unremarkable. The colonoscope was then inserted into the rectum and advanced under direct visualization to the terminal ileum which was identified by the presence of the ileocecal valve and villous appearing mucosa of the terminal ileum. Once the terminal ileum was reached, the colonoscope was withdrawn back to the rectum. Mucosa and lumen were examined. In the rectum, retroflexion was performed. Following retroflexion, remaining air in the rectum was suctioned, and procedure was completed. FINDINGS: 1. In the ascending colon, there was a diminutive polyp that was removed with cold biopsy forceps. 2. Scattered diverticula were seen throughout the left side of the colon. IMPRESSION: 1. Ascending colon polyp. 2. Left-sided diverticulosis. RECOMMENDATIONS: 1. Fiber rich diet. 2. Repeat colonoscopy pending polyp pathology results. 3. Follow up in GI clinic. COMPLICATIONS: None. ESTIMATED BLOOD LOSS: Less than 5 mL. Corrected by GS 03/08/17 at 2:03pm DOS.
--- NOTE | 2017-03-05 16:45 | PATH ---
SURGICAL PATHOLOGY Attending Physician:Rosi Lai CASE STATUS: Signed Out PATIENT NAME: RANDALL VENEGAS PID: [id number] : 1970 DATE COLLECTED:03/04/2017 15:18 SPECIMEN: 1: Duodenum, Biopsy 2: Gastric, Biopsy 3: Colon, Polyp CLINICAL HISTORY: 1). DUODENAL BIOPSY 2). RANDOM GASTRIC BIOPSY 3). ASCENDING POLYP FINAL DIAGNOSIS: 1.DUODENUM, BIOPSY: DUODENAL MUCOSA WITH NO DIAGNOSTIC ABNORMALITY. Negative for active inflammation, features of sprue, dysplasia, and malignancy. 2.RANDOM STOMACH, BIOPSY: BODY-TYPE MUCOSA WITH NO DIAGNOSTIC ABNORMALITY. Negative for Helicobacter organisms. Negative for intestinal metaplasia. Negative for dysplasia and malignancy. 3.ASCENDING COLON POLYP, BIOPSY: TUBULAR ADENOMA. ICD10 R10.13 GROSS DESCRIPTION: The specimen is received in three formalin filled containers labeled with the patient's name. 1). The specimen is labeled "duodenal" and consists of 3 portions of shoe which aggregate to 0.2 x 0.2 x 0.2 CM. The specimen is entirely submitted in cassette 1A. 2). The specimen is labeled "gastric" and consists of 3 portions of tissue which aggregate to 0.3 x 0.3 x 0.2 CM. The specimen is entirely submitted in cassette 2A. 3). The specimen is labeled "ascending polyp" and consists of a 0.4 x 0.2 x 0.2 CM portion of tissue which is entirely submitted in cassette 3A. 03/04/2017DC MICRO DESCRIPTION: See diagnosis. ICD-9 CODES: CPT CODES: 1: 19275 2: 32408 3: 27758 Electronically Signed Out Brien Godoy MD, Ph.D. [facility] [address], [place] [address] Technical component performed at [facility], [facility] [address], [address]
== END 2017-03-04 23:59 | disposition home or self-care (01) ==
LOC: END 07:00
PROVIDERS: ATTEND Internal Medicine Gastroenterology
DX: D12.2 Benign neoplasm of ascending colon (principal); K57.30 Diverticulosis of large intestine without perforation or abscess without bleeding; K92.1 Melena; K59.00 Constipation, unspecified; Z87.820 Personal history of traumatic brain injury; F17.220 Nicotine dependence, chewing tobacco, uncomplicated
CPT/HCPCS: 43239; 45380; 99152; 99153; J2250; J3010; J7030